=== PATIENT | male | born 1975 | race Two or more races ===

== ENCOUNTER 2020-06-10 01:17 | Emergency (ER) | payer OTHER ==
[~2020-06-10] VITALS: Ht 177.8 cm; Wt 68.2 kg
[2020-06-10 01:34] VITALS: BP 122/70
[2020-06-10 01:34] LABS: COVID AG,FIA SOURCE NASOPHARYNGEAL
== END 2020-06-10 02:32 | disposition home or self-care (01) ==
LOC: EMS 01:17
DX: Z20.828 Contact with and (suspected) exposure to other viral communicable diseases (principal)
CPT/HCPCS: 87426